=== PATIENT | male | born 1980 ===

== ENCOUNTER 2016-11-04 14:52 | Emergency (ER) | payer OTHER ==
[2016-11-04 14:52] VITALS: BMI 38.6
[2016-11-04 15:07] VITALS: BP 120/69; PULSE 73; RESP 19; TEMP 99; O2SAT 98
--- NOTE | 2016-11-04 16:19 | ED PDOC ---
Lower Extremity Pain/Injury Time Seen by Provider: 11/04/16 15:21 Chief Complaint (Nursing): Lower Extremity Problem/Injury Chief Complaint (Provider): laceration History Per: Patient History/Exam Limitations: no limitations Additional Complaint(s): 36yo M in ED for evla of laceration to left first digit DIP sustained toaday after a trip on sidewalk. tetatnus is uptodate. admits to pain and burning to area of laceration but FROM of digit no weakness no swelling. Past Medical History Reviewed: Historical Data, Nursing Documentation, Vital Signs Vital Signs: Last Vital Signs Temp 99 F 11/04/16 15:07 Pulse 73 11/04/16 15:07 Resp 19 11/04/16 15:07 BP 120/69 11/04/16 15:07 Pulse Ox 98 11/04/16 15:07 - Medical History PMH: HTN (pt says he does not take rx for this), Hypercholesterolemia, Parkinson 's Disease - Family History Family History: States: Unknown Family Hx - Immunization History Hx Tetanus Toxoid Vaccination: No Hx Influenza Vaccination: No Hx Pneumococcal Vaccination: No - Home Medications Home Medications: Ambulatory Orders Medication Instructions Recorded diaZEpam [Valium] 5 mg PO Q6H PRN #15 tab 02/02/15 Naproxen [Naprosyn] 500 mg PO BID PRN 6 Days 02/17/16 Permethrin 5% [Permethrin 5% Cream] 30 g TOP ONCE #30 tube 05/31/16 Clindamycin [Cleocin] 300 mg PO TID #30 cap 11/04/16 Mupirocin 2% Cream [Bactroban 30 gm EXT DAILY #1 tube 11/04/16 Cream] - Allergies Allergies/Adverse Reactions: Allergies Allergy/AdvReac Type Severity Reaction Status Date / Time No Known Allergies Allergy Verified 11/04/16 15:03 Review of Systems ROS Statement: Except As Marked, All Systems Reviewed And Found Negative Musculoskeletal: Positive for: Foot Pain Physical Exam - Reviewed Nursing Documentation Reviewed: Yes Vital Signs Reviewed: Yes - Physical Exam Appears: Positive for: Well, Non-toxic, No Acute Distress Head Exam: Positive for: ATRAUMATIC, NORMAL INSPECTION, NORMOCEPHALIC Skin: Positive for: Normal Color, Warm, DRY Cardiovascular/Chest: Positive for: Regular Rate, Rhythm Respiratory: Positive for: CNT, Normal Breath Sounds Extremity: Positive for: Other (left first toe: laceration noted to DIP near nailbed, but not involving nail bed. friable skin noted. 1.5 irregular laceration. no swelling to toe, no pain wit ROM of toe. good pulses. ) Neurologic/Psych: Positive for: Alert, Oriented - ECG O2 Sat by Pulse Oximetry: 98 Medical Decision Making Medical Decision Making: pt strongly advised to assure wound is dry, and to Rx abx PO abd topical advised to hav pmd f/u given surgical shoe return in 8 days for wound eval. nontoxic appearing understands instructions. Disposition - Clinical Impression Clinical Impression: Laceration of foot - Patient ED Disposition Is Patient to be Admitted: No Counseled Patient/Family Regarding: Diagnosis, Need For Followup, Rx Given - Disposition Disposition: Routine/Home Disposition Time: 16:39 Condition: STABLE Additional Instructions: keep wound clean do not wet wound take antibiotics and put antibiotic cream sparingling. keep surgical shoe on Prescriptions: Clindamycin [Cleocin] 300 mg PO TID #30 cap Mupirocin 2% Cream [Bactroban Cream] 30 gm EXT DAILY #1 tube Instructions: Care For Your Stitches (ED), Laceration (ED) Forms: [facility] ED School/Work Excuse Procedure: Wound Repair - Time Performed Time Performed: 16:37 - Time Out Time Out: Side verified, Site verified, Patient ID confirmed, Sterile procedures obs. - Consent Obtained Consent obtained: Verbal - Performed by Performed by: Mid-level Provider - Indications Indication(s):: Laceration - Location Toe:: Left, 1 Shape:: Curvilinear Dimensions Length cm: 1.5 Depth:: Epidermis - Anesthetic Technique Anesthetic Technique: Local Local/Regional Anesthetic:: Lidocaine 1% - Debris Debris:: None - Irrigated Irrigated with ml of normal saline: 100 with betadine - Complexity Complexity:: Simple (one layer) - Wound repair method Sutures:: # (4), Size (5-0), Type (nylon), Technique (simple interrupted) [place]:: Steri-strips - Patient tolerated procedure Patient Tolerated Procedure:: Well
== END 2016-11-04 16:27 | disposition home or self-care (01) ==
LOC: H.ER 14:52
DX: S91.312A Laceration without foreign body, left foot, initial encounter (principal); W19.XXXA Unspecified fall, initial encounter; Y92.89 Other specified places as the place of occurrence of the external cause

== ENCOUNTER 2016-11-11 12:14 | Emergency (ER) | payer OTHER ==
[2016-11-11 12:15] VITALS: BMI 38.6
[2016-11-11 12:18] VITALS: BP 129/53; PULSE 76; RESP 18; TEMP 98.2; O2SAT 98
[2016-11-11] MEDS ORDERED: TDAP Vaccine 0.5 mL Syr IM ONE (12:38)
--- NOTE | 2016-11-11 12:38 | ED PDOC ---
HPI: Wound Care - HPI Time Seen by Provider: 11/11/16 12:16 Chief Complaint (Nursing): Suture/Staple Removal Chief Complaint (Provider): Suture removal History Per: Patient Exam Limitations: no limitations Current Symptoms Are (Timing): Gone Now Location Of Injury: Left: Foot (first toe) Severity: Mild Additional Complaint(s): 36 year old male with a pertinent medical history of hypertension (compliant with medications), Ukijs-Lrgjedrdg-Dcdqh syndrome, and sickle cell anemia presents to the ED for a suture removal. The sutures were placed on 11/04/2016 ( 7x days ago) on his left first toe. He reports that he is compliant with his antibiotics and antibiotic topical cream. He does not recall when his last Tetanus vaccination was ("maybe 4-5x years ago"). He denies having any fevers or chills. Patient has had a vagal response to suture placement and previous tetanus shot. PMD:Abimael Ochoa MD Hospice Massage Therapist: Dr. Kincaid. Past Medical History Reviewed: Historical Data, Nursing Documentation, Vital Signs Vital Signs: Last Vital Signs Temp 98.2 F 11/11/16 12:16 Pulse 76 11/11/16 12:16 Resp 18 11/11/16 12:16 BP 129/53 L 11/11/16 12:16 Pulse Ox 98 11/11/16 12:16 - Medical History PMH: HTN (patient is now compliant with medications), Hypercholesterolemia, Sickle Cell Disease Other PMH: Amauri-Parkinson White Syndrome, hepatic steatosis - Family History Family History: States: Unknown Family Hx - Living Arrangements Living Arrangements: With Family - Social History Current smoker - smoking cessation education provided: Yes Alcohol: None Drugs: Denies - Immunization History Hx Tetanus Toxoid Vaccination: No Hx Influenza Vaccination: No Hx Pneumococcal Vaccination: No - Home Medications Home Medications: Ambulatory Orders Medication Instructions Recorded diaZEpam [Valium] 5 mg PO Q6H PRN #15 tab 02/02/15 Naproxen [Naprosyn] 500 mg PO BID PRN 6 Days 02/17/16 Permethrin 5% [Permethrin 5% Cream] 30 g TOP ONCE #30 tube 05/31/16 Clindamycin [Cleocin] 300 mg PO TID #30 cap 11/04/16 Mupirocin 2% Cream [Bactroban 30 gm EXT DAILY #1 tube 11/04/16 Cream] - Allergies Allergies/Adverse Reactions: Allergies Allergy/AdvReac Type Severity Reaction Status Date / Time No Known Allergies Allergy Verified 11/04/16 15:03 Review of Systems Constitutional: Negative for: Fever, Chills Skin: Positive for: Other (sutures on left first toe from injury on 11/04/16) Physical Exam - Reviewed Nursing Documentation Reviewed: Yes Vital Signs Reviewed: Yes - Physical Exam Appears: Positive for: Well, Non-toxic, No Acute Distress Head Exam: Positive for: ATRAUMATIC, NORMOCEPHALIC Skin: Positive for: Normal Color, Warm, Dry Cardiovascular/Chest: Positive for: Regular Rate, Rhythm Respiratory: Positive for: Normal Breath Sounds. Negative for: Respiratory Distress Extremity: Positive for: Normal ROM, Other (sutures on left big toe, ecchymosis noted under wound of left first toe. wound is clean and dry. no signs of infections.). Negative for: Deformity, Swelling Neurologic/Psych: Positive for: Alert, Oriented (3x) - ECG O2 Sat by Pulse Oximetry: 98 (RA) Pulse Ox Interpretation: Normal Medical Decision Making Medical Decision Makin:16 Initial impression: 36 year old male with sutures on left big toe presents to the ED for suture removal. Initial plan: * boostrix vaccine inj .5ml IM * suture removal * reevaluation Scribe Attestation: Documented by Lydia Naik acting as a scribe for Jose TRIMBLE MD Scribe Attestation: All medical record entries made by the Scribe were at my direction and personally dictated by me. I have reviewed the chart and agree that the record accurately reflects my personal performance of the history, physical exam, medical decision making, and the department course for this patient. I have also personally directed, reviewed, and agree with the discharge instructions and disposition. Disposition - Clinical Impression Clinical Impression: Removal of suture - Patient ED Disposition Is Patient to be Admitted: No - Disposition Disposition: Routine/Home Disposition Time: 13:00 Condition: FAIR Additional Instructions: F/U WITH ELECTROPHYSIOLOGY FOR FURTHER DISCUSSION ABOUT CARE OF WPW SYNDROME. Instructions: Stitches Removal (ED)
== END 2016-11-11 13:06 | disposition home or self-care (01) ==
LOC: H.ER 12:14
DX: Z48.02 Encounter for removal of sutures (principal); Z23 Encounter for immunization